=== PATIENT | male | born 1950 | race Caucasian/White ===

== ENCOUNTER → 2017-07-06 | Outpatient (CLI) | payer OTHER | LOC: BMCIMAGING 08:19 | PROVIDERS: ATTEND Family Medicine | DX: K76.0 Fatty (change of) liver, not elsewhere classified (principal) ==

== ENCOUNTER 2017-11-10 12:58 | Inpatient (IN) | payer OTHER, MEDICARE ==
[2017-11-10] MEDS ORDERED: ONDANSETRON 4 MG/2 ML VIAL IVP PRN (15:46)
[2017-11-10] MEDS ORDERED: PROMETHAZINE HCL 25 MG/ML INJ IVP PRN (15:46)
[2017-11-10] MEDS ORDERED: ACETAMINOPHEN 325 MG TAB PO PRN (15:51)
[2017-11-10 17:27] LABS: PLATELET COUNT 329 10^3/uL (150-400)
[2017-11-10] MEDS: NS 1,000 ML IV SCH (17:43)
[2017-11-10] MEDS: cefTRIAXone 1 GM in STERILE WATER INJ 10 ML IV SCH (17:45)
[2017-11-10 17:51] LABS: INR 1.07 (0.83-1.16); PROTIME(PATIENT) 14.1 SEC (12.0-15.0)
--- NOTE | 2017-11-10 17:53 | GHP ---
[f rep st] HISTORY AND PHYSICAL DATE OF ADMISSION: 11/10/2017 CHIEF COMPLAINT: Right upper quadrant pain. HISTORY: The patient is a 67-year-old male, who has had abdominal pain for 1 week. He describes yun sea, dry heaving, and abdominal cramping. This is his third similar episode in the last 5 months. A t his first episode last fall, he had an ultrasound and a CT scan that showed he was told duodenal in flammation, and nothing further was done. He had another episode around the holidays which passed sp ontaneously, and now he is in this current episode. He describes a right upper quadrant pain that is now more generalized in his abdomen. It does not radiate to the back. It comes and goes and is wor se with eating. He has had a 15-pound unintentional weight loss. He has had low-grade fever up to 10 19 last Thursday with shaking chills. Pain is 3/10 severity, just mild and aching, not severe. He als o complains of joint aches, malaise, and weakness. He noticed jaundice 4 days ago. There has been n o change in his bowels. He had an outpatient ultrasound that showed gallbladder sludge with bile ming t dilatation. He is now being admitted directly. PAST MEDICAL HISTORY: Hypothyroidism. PAST SURGICAL HISTORY: Lipoma removal. MEDICATIONS: Please see computerized record for full detailed list. ALLERGIES: No known drug allergies. SOCIAL HISTORY: He has not smoked for 20 years. Alcohol: He quit prior to . He lives wit h his . He works in environmental science. REVIEW OF SYSTEMS: Complete review of systems obtained. Review of systems negative regarding consti tutional, HEENT, GI, pulmonary, vascular, , hematology, skin, musculoskeletal, endocrine, psych exc ept for positives and negatives as noted in HPI. FAMILY HISTORY: Reviewed, noncontributory to presenting complaint. PHYSICAL EXAMINATION: GENERAL: Well-developed, well-nourished male, in no acute distress. VITAL SI GNS: Temperature is 37.2, pulse 84, blood pressure 120/85, satting 94% on room air. EYES: Normal c onjunctivae. Pupils round, reactive to light. ENT: Normal ears and nose. Hearing intact. Normal teeth. Oropharynx moist. NECK: Trachea midline. No thyromegaly. CHEST: Normal respiratory effor t. LUNGS: Clear to auscultation bilaterally. CARDIOVASCULAR: Regular rhythm. No murmur. No lowe r extremity edema. ABDOMEN: Soft, nontender. No hepatosplenomegaly. SKIN: Warm, dry, intact. No rash. MUSCULOSKELETAL: No cyanosis or clubbing. Strength 5/5 upper and lower extremities. NEURO: Cranial nerves intact. Normal sensation to light touch. PSYCH: Alert and oriented x3. Normal af fect. Normal judgment. Normal memory. LABORATORY DATA: White count 11.29, hematocrit 47.9, platelets 264. Sodium 140, potassium 4.4, chlo ride 100, bicarb 24, BUN 6, creatinine 0.8, glucose 134, total bili 10.3, conjugated bili is 8, AST 9 6, ALT 256, alk phos 244, lipase 160. Viral hepatitis panel is negative. Abdominal ultrasound shows gallbladder sludge and common bile duct dilatation at 11 mm. ASSESSMENT/PLAN: Bile duct obstruction with jaundice and elevated bilirubin. Differential diagnosis is gallstone versus tumor. I have spoken with Dr. Min Saba. He recommends an MRCP tonight and [employer] tomorrow after we have ruled out tumor. I am concerned about his reported fevers, although he is very nontoxic-appearing at this time and currently afebrile. He may have a very early mild cholangi tis so we will treat empirically with ceftriaxone and Flagyl. If he becomes more toxic and septic-ap pearing this evening, could consult GI for a more urgent ERCP. We will make him n.p.o. after midnigh t with anticipated procedure tomorrow. Endoscopic ultrasound will be added if tumor found on MRCP. COR STATUS: Full. ADMISSION STATUS: 1. We will start with observation. Reevaluate tomorrow regarding ongoing need for hospitalization. 2. DVT prophylaxis. We will hold given anticipated procedure. /[id number]/MODL
[2017-11-11] MEDS: LEVOTHYROXINE 100 MCG TAB PO SCH (05:18)
[2017-11-11 05:19] LABS: PLATELET COUNT 327 10^3/uL (150-400)
--- NOTE | 2017-11-11 08:50 | CPEKG ---
Heart Rate: 78 RR Interval: 769 P-R Interval: 152 QRSD Interval: 78 QT Interval: 376 QTC Interval: 429 P [place]: 43 QRS [place]: 44 T Wave [place]: -10 EKG Severity - BORDERLINE ECG - EKG Impression: SINUS RHYTHM EKG Impression: PROBABLE LEFT ATRIAL ABNORMALITY EKG Impression: BORDERLINE T ABNORMALITIES, INFERIOR LEADS Electronically Signed By: Meenakshi Ramos 11-Nov-2017 14:26:58
--- NOTE | 2017-11-11 08:52 | HOSPPROG ---
Hospitalist Progress Note Assessment/Plan: DIAGNOSES: -obstructing choledocholithiasis, with Recent onset abdominal pain/jaundice, with biliary dilation noted -Gal Bladder perforation seen on MRCP per radiologist but on my review of the stay with Dr. Severino it appears there likely is not an actual perforation in Dr. Severino's opinion I reviewed the case in detail and the care plans with Dr. Severino this morning I reviewed the clinical findings, radiology findings, laboratory data and past history in detail with the patient this morning. He had many questions about the diagnosis, how long he has had stones, the findings on the imaging studies, the reason for the current recommended plans, the reason for general anesthesia with cholecystectomy, and several other important questions. All these were answered in detail. PLANS: -continue supportive care with fluids, symptomatic medicines -continue IV hydration -NPO pending procedures -ERCP for stone extraction and possible stent placement later today, currently scheduled at 1:30 p.m. -continue supportive care and antibiotics, allow for recovery of biliary function and hepatic function before proceeding to his cholecystectomy likely in 2-3 days SUBJECTIVE: The patient at this time does not have pain or nausea and is not having chills He is not short of breath No other new symptoms OBJECTIVE Vitals reviewed: Highest temperature so far 37.3 vital signs otherwise stable Exam: alert oriented skin warm dry color ok resps not labored lungs clear BSs heart regular abd soft nondistended nontender, bowel sounds present limbs warm, no edema iv site ok Laboratory data: Bilirubin remains unchanged at 11, with alk-phos higher than transaminases Neutrophil count remains mildly elevated otherwise stable CBC Stable renal function and electrolytes I reviewed the MRI images, and he clearly has bile duct obstruction from a stone. There is some fluid density surrounding the gallbladder which could potentially be edema or fluid, but I am not personally able to differentiate these on MR Objective: Vital Signs Temp Pulse Resp BP Pulse Ox 36.6 C 76 16 113/73 91 L 11/11/17 08:00 11/11/17 08:00 11/11/17 08:00 11/11/17 08:00 11/11/17 08:00 Laboratory Results 11/11/17 04:37 11/11/17 04:37 PT 14.1 SEC (12.0-15.0) 11/10/17 17:19 INR 1.07 (0.83-1.16) 11/10/17 17:19 - Time Spent With Patient Time Spent with Patient: greater than 35 minutes Time Spent with Patient: Greater than 35 minutes spent on this patients care, greater than 50% of time spent counseling, educating, and coordinating care regarding the above mentioned plan. ICD10 Worksheet Patient Problems: Problems Problem Status Onset Dilated bile duct Acute
[2017-11-11] MEDS: cefTRIAXone 1 GM in STERILE WATER INJ 10 ML IV SCH (09:37)
[2017-11-11] MEDS: NS 1,000 ML IV SCH (09:37)
--- NOTE | 2017-11-11 11:22 | ASMTCASEMG ---
Living Arrangements What is your living Answers: With Spouse arrangement? Who do you live with? Type Of Residence What kind of residence do Answers: House you live in? Discharge Plan Comments Coordination Status Comments Notes: Pt is a 67 y/o man admitted for abdominal pain and jaudice. Pt will most likely d/c independent without any needs. No therapies ordered at this time. CM available for changes. Plan: Independent Date Signed: 11/11/2017 11:21 AM Electronically Signed By:LILLIAN Small
[2017-11-11] MEDS ORDERED: GLUCAGON HCL 1 MG VIAL ONE (12:11)
[2017-11-11] MEDS ORDERED: IOTHALAMATE MEG (CONRAY) 50 ML VIAL IV ONE (12:12)
[2017-11-11] MEDS ORDERED: LR 1,000 ML IV ONE (12:44)
[2017-11-11] MEDS ORDERED: ALBUTEROL 3 ML DEYVIAL IH PRN (12:58)
[2017-11-11] MEDS ORDERED: fentaNYL 100 MCG/2 ML INJ IVP PRN (12:58)
[2017-11-11] MEDS ORDERED: NALOXONE HCL 0.4 MG/ML INJ IVP PRN (12:58)
[2017-11-11] MEDS ORDERED: ONDANSETRON 4 MG/2 ML VIAL IVP PRN (12:58)
[2017-11-11] MEDS ORDERED: ACETAMINOPHEN 500 MG TAB PO PRN (12:58)
[2017-11-11] MEDS ORDERED: HYDROmorphONE/DILAUDID 1 MG/ML INJ IVP PRN (12:58)
--- NOTE | 2017-11-11 13:00 | PDANEPAE ---
ANE History of Present Illness ERCP ANE Past Medical History - Pulmonary History Hx Oxygen in Use at Home: No Hx Sleep Apnea: No Sleep Apnea Screening Result - Last Documented: Positive - Endocrine History Hx Diabetes: No ANE Review of Systems Review of Systems: ANE Patient History - Allergies Allergies/Adverse Reactions: No Known Allergies Allergy (Unverified 11/10/17 15:21) - Home Medications Home Medications: Levothyroxine [Synthroid 100 mcg (*)] 100 mcg PO DAILY06 11/10/17 [Last Taken ] - NPO status NPO Since - Liquids (Date): 11/11/17 NPO Since - Liquids (Time): 00:00 NPO Since - Solids (Date): 11/11/17 NPO Since - Solids (Time): 00:00 - Smoking Hx Smoking Status: Former smoker ANE Labs/Vital Signs - Labs Result Diagrams: 11/11/17 04:37 11/11/17 04:37 - Vital Signs Blood Pressure: 113/73 Heart Rate: 76 Respiratory Rate: 16 O2 Sat (%): 91 Height: 170.18 cm Weight: 74.843 kg ANE Physical Exam - Airway Neck exam: FROM Mallampati Score: Class 2 Mouth exam: normal dental/mouth exam - Pulmonary Pulmonary: clear to auscultation - Cardiovascular Cardiovascular: regular rate and rhythym - ASA Status ASA Status: II ANE Anesthesia Plan Anesthesia Plan: general endotracheal anesthesia
[2017-11-11] MEDS ORDERED: fentaNYL 100 MCG/2 ML INJ ONE (13:11)
[2017-11-11] MEDS ORDERED: ROCURONIUM 50 MG/5 ML VIAL ONE (13:11)
[2017-11-11] MEDS ORDERED: PROPOFOL 200 MG/20 ML VIAL ONE (13:11)
--- NOTE | 2017-11-11 13:22 | GCON ---
[f rep st] CONSULTATION REFERRING PHYSICIAN: Dr. Jasvir Grijalva REASON FOR CONSULTATION: Abdominal pain and jaundice. HISTORY OF PRESENT ILLNESS: Briefly, the patient is a pleasant, healthy, 67- year-old male who has had several weeks of intermittent right upper quadrant pain associated with nausea and low-grade fever. He was seen in his primary care office yesterday and noted to be visibly jaundiced. His outpatient workup has included both ultrasound and CT scan. He was noted to have a dilated gallbladder. In the setting of his unintentional weight loss, abdominal pain, and worsened jaundice, he was asked to present to the hospital. His inpatient evaluation, included an MRCP, which has revealed a large common bile duct stone , as well as evidence of cholecystitis. He reports prior to the last several weeks, he has had no eating related pain or right upper quadrant pain. He denies any personal or family history of biliary tract disease, pancreatic disease, or peptic disease. ALLERGIES: None. FAMILY HISTORY: no Gall Bladder disease OUTPATIENT MEDICINES: Thyroid replacement. PAST MEDICAL HISTORY: Hypothyroidism. PAST SURGICAL HISTORY: Lipoma removal. SOCIAL HISTORY: He does not drink, smoke, or use drugs currently. He has a prior history of tobacco use, but has been abstinent for 20 years. He has a prior history of alcohol use, but reports he has given that up as recently as Ethel. He lives with his . He works in environmental science. REVIEW OF SYSTEMS: A complete 10-point review was undertaken with the patient and is negative, except for those pertinent positives and negatives detailed in the history of present illness. PHYSICAL EXAMINATION: GENERAL: This is a well-developed male in no apparent distress. HEENT: His pupils are equal, round, reactive to light and accommodation. His sclerae are icteric. His oropharynx is clear. NECK: Supple without lymphadenopathy. HEART: Regular without murmur. LUNGS: Normal respiratory effort with excellent breath sounds. ABDOMEN: Soft, with mild tenderness in the right upper quadrant. SKIN: Warm and dry, but shows evidence of jaundice. MUSCULOSKELETAL: No cyanosis or clubbing. NEUROLOGIC: Grossly nonfocal. PSYCHIATRIC: Normal mood and affect. LABORATORY/IMAGING: On admission, his total bilirubin was 10.8, unconjugated was 1.9, conjugated was 8.9, AST of 84, ALT of 219, alkaline phosphatase of 256 , lipase of 133. INR of 1.07. White count of 8.96, hemoglobin of 15.9, hematocrit of 45.7, platelet count of 327. MRCP of the abdomen revealed gallbladder with pericholecystic fluid collection concerning for a biloma, abscess, or perforation. A probable 1 cm stone in the distal common bile duct with moderate biliary ductal dilation. There was both intra, as well as extrahepatic ductal dilation. Gallbladder sludge and layering throughout the cystic duct was also noted concerning for inspissated bile versus hemorrhage. Pancreatic appeared normal. IMPRESSION/RECOMMENDATIONS: The patient has had recurrent right upper quadrant abdominal pain, now associated with jaundice. His imaging is consistent with a biliary ductal obstruction from choledocholithiasis. At this point, I recommend he undergo ERCP. We will be attempting to remove his large common bile duct stone. He will likely benefit from laparoscopic cholecystectomy ultimately as well. /[id number]/MODL MTDD
--- NOTE | 2017-11-11 14:25 | GIREPORT ---
[facility] - Endoscopy Department Patient Name: Solo Jacques Procedure Date: 11/11/2017 1:30 PM Patient Type: Inpatient Attending MD/ ER Physician: Min Saba MD Procedure: ERCP Indications: Abdominal pain of suspected biliary origin, Abnormal MRCP, Suspected bi le duct stone(s), Suspected ascending cholangitis, Jaundice, Abnormal live r function test, Elevated bilirubin Providers: Min Saba MD Medicines: Sedation Administered by an Anesthesia Professional Complications: No immediate complications. Description of Procedure: After obtaining informed consent, the scope was passed under direct vis ion. Throughout the procedure, the patient's blood pressure, pulse, and oxyg en saturations were monitored continuously. The was introduced through the mouth, and advanced to the duodenum and used to inject contrast into th e bile duct. The ERCP was accomplished without difficulty. The patient tolerated the procedure well. Findings: The solvent recoverer film was normal. The esophagus was successfully intubated und er direct vision. The scope was advanced to a normal major papilla in the descending duodenum without detailed examination of the pharynx, larynx and associated structures, and upper GI tract. The upper GI tract was gross ly normal. The bile duct was deeply cannulated with the short-nosed tracti on sphincterotome. Contrast was injected. I personally interpreted the juan e duct images. There was brisk flow of contrast through the ducts. Image quality was excellent. Contrast extended to the main bile duct. Contras t extended to the bifurcation. Contrast extended to the hepatic ducts. Th e entire biliary tree was diffusely dilated. The largest diameter was 15 mm. The lower third of the main bile duct contained multiple stones, the la rgest of which was 12 mm in diameter. A straight Roadrunner wire was passed i nto the biliary tree. A 12 mm biliary sphincterotomy was made with a nathalieide d traction (standard) sphincterotome using ERBE electrocautery. There was no post-sphincterotomy bleeding. The biliary tree was swept with a 15 mm balloon starting at the bifurcation. Pus was swept from the duct. Sludg e was swept from the duct. Debris was swept from the duct. One 10 Fr by 7 cm plastic stent with a single external flap and a single internal flap wa s placed 6.5 cm into the common bile duct. Bile, pus and sludge flowed th rough the stent. The stent was in good position. Estimated Blood Loss: Estimated blood loss: none. Post Op Diagnosis: - The entire biliary tree was dilated. - Choledocholithiasis was found. Partial removal was accomplished with biliary sphincterotomy; a stent was inserted. - A biliary sphincterotomy was performed. - The biliary tree was swept and pus, sludge and debris were found. - One plastic stent was placed into the common bile duct. Recommendation: - [facility]. - Refer to a surgeon. - Repeat ERCP in 6 weeks for retreatment. May benefit from cholangiosco py and lithotripsy. - The findings and recommendations were discussed with the surgeon. - The findings and recommendations were discussed with the patient's lynn berry. Attending Participation: I personally performed the entire procedure. Min Saba MD Min Saba MD 11/11/2017 2:25:18 PM This report has been signed electronicallyMin Saba MD Number of Addenda: 0 Note Initiated On: 11/11/2017 1:30 PM [email or web address]
--- NOTE | 2017-11-11 14:29 | POSTANESTH ---
Post Anesthetic Evaluation Cardiovascular Status: Normal, Stable Respiratory Status: Normal, Stable Level of Consciousness/Mental Status: Can Participate in Eval, Alert and Oriented Pain Control: Adequate, Prn Tx Ordered Nausea/Vomiting Control: Adequate, Prn Tx Ordered Complications Possibly Related to Anesthesia: None Noted
--- NOTE | 2017-11-11 15:43 | GCON ---
[f rep st] CONSULTATION DATE OF CONSULTATION: 11/10/2017 REFERRING PHYSICIAN: Disha Mckeon MD REASON FOR CONSULTATION: Obstructive jaundice with abnormal gallbladder. HISTORY OF PRESENT ILLNESS: The patient is a 67-year-old white gentleman who presented with a biliru bin of 10.8 with 8.9 mg as conjugated. An MRCP did show a distal common bile duct stone. Lipase is normal. The gallbladder has an irregularity along its medial wall, which may be a partial duplicatio n or variation of a Phrygian cap. Speculation was made that this might be in fact a perforation, but it appears to be too smooth on the external side and he does not appear septic at this point, so I t hink that is in fact not the case. I spent approximately 45 minutes going over biliary physiology an d answering questions for the patient. He will undergo an ERCP on Thursday, the . After that h as been completed, the decision will be made as to when to intervene for a cholecystectomy. Note is made he does have sludge but no other obvious stones in the gallbladder. His lipase is normal now. His transaminases are minimally elevated. We will see how he does physiol ogically and then proceed with potential elective cholecystectomy. At this point, he is unclear whet her he wishes to proceed with a cholecystectomy and is becoming more comfortable with that possible dagoberto hunt. /[id number]/MODL
--- NOTE | 2017-11-11 17:38 | SOAPPROG ---
[facility] Progress Note Assessment/Plan: Assessment: ERCP partially successful in removing stones. Stent placed. Follow up ERCP planned in future. Plan: Will get follow up labs in AM to help decide when to proceed with Cholecystectomy Subjective: I have some nausea now. Objective: Vital Signs Temp Pulse Resp BP Pulse Ox 37.1 C 79 18 115/71 91 L 11/11/17 17:10 11/11/17 17:10 11/11/17 17:10 11/11/17 17:10 11/11/17 17:10 Laboratory Results 11/11/17 04:37 11/11/17 04:37 11/10/17 11/11/17 11/12/17 05:59 05:59 05:59 Intake Total 650 Output Total 0 Balance 650 PT 14.1 SEC (12.0-15.0) 11/10/17 17:19 INR 1.07 (0.83-1.16) 11/10/17 17:19 ICD10 Worksheet Patient Problems: Problems Problem Status Onset Dilated bile duct Acute
[2017-11-12 05:19] LABS: PLATELET COUNT 344 10^3/uL (150-400)
[2017-11-12] MEDS: LEVOTHYROXINE 100 MCG TAB PO SCH (05:40)
[2017-11-12] MEDS: cefTRIAXone 1 GM in STERILE WATER INJ 10 ML IV SCH (08:56)
--- NOTE | 2017-11-12 09:33 | SOAPPROG ---
SOAP Progress Note Assessment/Plan: Assessment: 1. Choledocholithiasis/cholecystitis - s/p ERCP with stent placement and sphincterotomy - purulence and stone in CBD at ERC - large CBD stone remains - LFTs and pain improved p ERC Plan: 1. Repeat ERCP with cholangioscopy and lithotripsy in 6-8 weeks 2. Lap sarah prior to dc 3. Continue abx meanwhile 4. discussed with patient, family, and Dr. Severino this AM - will sign off, call with questions 11/12/17 09:02 Subjective: CC: f/u abn LFTs S: feeling better tolerated clears today no fever overnight no bloody BMs no vomiting improved RUQ pain Objective: Vital Signs Temp Pulse Resp BP Pulse Ox 36.8 C 82 18 118/86 H 93 11/12/17 07:32 11/12/17 07:32 11/12/17 07:32 11/12/17 07:32 11/12/17 07:32 Laboratory Results 11/12/17 04:23 11/12/17 04:23 11/11/17 11/12/17 11/13/17 05:59 05:59 05:59 Intake Total 2648 Output Total 0 Balance 2648 PT 14.1 SEC (12.0-15.0) 11/10/17 17:19 INR 1.07 (0.83-1.16) 11/10/17 17:19 Physical Exam - Physical Exam General Appearance: alert, no apparent distress EENT: PERRL/EOMI, scleral icterus (R), scleral icterus (L) Neck: supple Respiratory: lungs clear, normal breath sounds Cardiac/Chest: normal peripheral pulses, regular rate, rhythm, No edema Abdomen: normal bowel sounds, non-tender, soft Skin: jaundice ICD10 Worksheet Patient Problems: Problems Problem Status Onset Dilated bile duct Acute
--- NOTE | 2017-11-12 10:40 | PDMN ---
Medical Necessity Medical necessity: Change to IP, as of 11/11/17, per MD; los >2 mn following unsuccessful attempt at stone removal by ERCP; admit for IV abx, IVFs, IV antiemetics, stabilization & surgical intervention; per progress note & order
--- NOTE | 2017-11-12 11:35 | SOAPPROG ---
[facility] Progress Note Assessment/Plan: 11/11/2017 Assessment: ERCP partially successful in removing stones. Stent placed. Follow up ERCP planned in future. Plan: Will get follow up labs in AM to help decide when to proceed with Cholecystectomy 11/12/17 11:32 PAD#3 Assessment: Doing well. Bilirubin down, lipase up (as expected) and wbc stable. Plan: Laparoscopic ( possibly open ) cholecystectomy with cholangiogram tomorrow if labs adequate. Subjective: 11/12/2017 My ow back hurts and I think that its the bed! Objective: Vital Signs Temp Pulse Resp BP Pulse Ox 36.8 C 82 18 118/86 H 93 11/12/17 07:32 11/12/17 07:32 11/12/17 07:32 11/12/17 07:32 11/12/17 07:32 Laboratory Results 11/12/17 04:23 11/12/17 04:23 11/11/17 11/12/17 11/13/17 05:59 05:59 05:59 Intake Total 2648 Output Total 0 Balance 2648 PT 14.1 SEC (12.0-15.0) 11/10/17 17:19 INR 1.07 (0.83-1.16) 11/10/17 17:19 - Time Spent With Patient Time Spent With Patient: 35 Physical Exam - Physical Exam General Appearance: WD/WN, alert, mild distress Neck: non-tender, full range of motion Respiratory: chest non-tender, lungs clear, normal breath sounds Cardiac/Chest: regular rate, rhythm Abdomen: normal bowel sounds, non-tender, soft Male Genitalia: deferred Rectal: deferred Back: Normal inspection Skin: jaundice (but improved) Extremities: normal range of motion, non-tender Neuro/Psych: alert, normal mood/affect ICD10 Worksheet Patient Problems: Problems Problem Status Onset Dilated bile duct Acute
--- NOTE | 2017-11-12 12:46 | HOSPPROG ---
Hospitalist Progress Note Assessment/Plan: DIAGNOSES: -obstructing choledocholithiasis with cholangitis, with recent onset abdominal pain/jaundice, with biliary dilation noted on outpatient ultrasound -MRCP showed obstructing stone and raise concern about possible gallbladder leak -ERCP 11/11 with unsuccessful attempt at stone retrieval, successful placement of biliary stent which resulted in drainage of purulent fluid from behind the stone -suspected cholecystitis and question of possible gallbladder leak -mild post ERCP pancreatitis I reviewed the case in detail and the care plans with Dr. Maycol Saba this morning, and I have discussed the patient's status and progress and care recommendations with him and his at the bedside today. Given the question of bile leak from the bladder, and cholangitis, is felt best if we perform his cholecystectomy during this hospital admission. However with mild pancreatitis present it is reasonable to continue antibiotics, keep her restricted diet, recheck his lipase tomorrow, and perform his surgery either tomorrow or the next day. The stent will be left in place with plans to come back in approximately 6 weeks to try a in PLANS: -continue supportive care with fluids, symptomatic medicines -continue IV hydration -NPO pending procedures -ERCP for stone extraction and possible stent placement later today, currently scheduled at 1:30 p.m. -continue supportive care and antibiotics, allow for recovery of biliary function and hepatic function before proceeding to his cholecystectomy likely in 2-3 days -restricted diet for pancreatitis, recheck lipase in the morning -cholecystectomy is recommended either for tomorrow or 11/14 - plan ERCP with lithotripsy, stone extraction and stent removal in approximately 6 weeks SUBJECTIVE: He has less pain, no nausea, and feels less general malaise than previous He has no appetite and does not really feel like eating at this time, but no nausea No chills or sweats OBJECTIVE Vitals reviewed: No fevers so far today, vitals stable Exam: alert oriented skin warm dry color now with less jaundice resps not labored lungs clear BSs heart regular abd soft nondistended nontender, bowel sounds present limbs warm, no edema iv site ok Laboratory data: Bilirubin lower today at 6, with stable transaminases and alk-phos, Lipase up to 340 CBC stable Stable renal function and electrolytes Objective: Vital Signs Temp Pulse Resp BP Pulse Ox 36.8 C 82 18 118/86 H 93 11/12/17 07:32 11/12/17 07:32 11/12/17 07:32 11/12/17 07:32 11/12/17 07:32 Laboratory Results 11/12/17 04:23 11/12/17 04:23 11/11/17 11/12/17 11/13/17 06:59 06:59 06:59 Intake Total 2648 Output Total 0 Balance 2648 PT 14.1 SEC (12.0-15.0) 11/10/17 17:19 INR 1.07 (0.83-1.16) 11/10/17 17:19 - Time Spent With Patient Time Spent with Patient: greater than 35 minutes Time Spent with Patient: Greater than 35 minutes spent on this patients care, greater than 50% of time spent counseling, educating, and coordinating care regarding the above mentioned plan. ICD10 Worksheet Patient Problems: Problems Problem Status Onset Dilated bile duct Acute
[2017-11-13 05:22] LABS: PLATELET COUNT 359 10^3/uL (150-400)
[2017-11-13] MEDS: LEVOTHYROXINE 100 MCG TAB PO SCH (05:30)
--- NOTE | 2017-11-13 07:45 | SOAPPROG ---
[facility] Progress Note Assessment/Plan: 11/11/2017 Assessment: ERCP partially successful in removing stones. Stent placed. Follow up ERCP planned in future. Plan: Will get follow up labs in AM to help decide when to proceed with Cholecystectomy 11/12/17 11:32 PAD#3 Assessment: Doing well. Bilirubin down, lipase up (as expected) and wbc stable. Plan: Laparoscopic ( possibly open ) cholecystectomy with cholangiogram tomorrow if labs adequate. 11/13/17 07:42 PAD#4 Assessment: Bilirubin, lipase and LFTs returning towards normal Plan: Plan laparoscopic cholecystectomy with possible cholangiogram today Subjective: no complaints Objective: Vital Signs Temp Pulse Resp BP Pulse Ox 36.7 C 74 16 118/80 94 11/13/17 07:32 11/13/17 07:32 11/13/17 07:32 11/13/17 07:32 11/13/17 07:32 Laboratory Results 11/13/17 04:22 11/13/17 04:22 11/12/17 11/13/17 11/14/17 05:59 05:59 05:59 Intake Total 2648 210 Output Total 0 Balance 2648 210 PT 14.1 SEC (12.0-15.0) 11/10/17 17:19 INR 1.07 (0.83-1.16) 11/10/17 17:19 - Time Spent With Patient Time Spent With Patient: 15 Physical Exam - Physical Exam General Appearance: WD/WN, alert, no apparent distress Respiratory: chest non-tender, lungs clear, normal breath sounds Cardiac/Chest: regular rate, rhythm Abdomen: normal bowel sounds, non-tender, soft Male Genitalia: deferred Rectal: deferred Back: Normal inspection Skin: jaundice (but jaundice resolving) Extremities: normal range of motion, non-tender, normal inspection Neuro/Psych: no motor/sensory deficits, alert, normal mood/affect, oriented x 3 ICD10 Worksheet Patient Problems: Problems Problem Status Onset Dilated bile duct Acute
[2017-11-13] MEDS: cefTRIAXone 1 GM in STERILE WATER INJ 10 ML IV SCH (10:15)
[2017-11-13] MEDS ORDERED: IOTHALAMATE MEG (CONRAY) 50 ML VIAL IV ONE (11:04)
--- NOTE | 2017-11-13 11:31 | HOSPPROG ---
Hospitalist Progress Note Assessment/Plan: Choledocholithiasis / cholecystitis - s/p ERCP with partial removal of stone, stent placement and sphincterotomy - purulence noted in CBD. LFT's trending down. -lap sarah today per surg -needs repeat ERCP 6-8 weeks with GI for stent removal Cholangitis 2/2 above - BCx's NGTD. Intra-operative Cx's pending -cont Ceftriaxone / Flagyl DVT PPLX - Pharmacologic agents deferred today given surgery. SCD's ordered. Full code Dispo - cont inpt Subjective: Pt feels fine. No longer having RUQ pain. No N/V. No fevers. NPO this am pending surgery. Objective: Vital Signs Temp Pulse Resp BP Pulse Ox 37.1 C 75 12 119/84 H 93 11/13/17 11:26 11/13/17 11:26 11/13/17 11:26 11/13/17 11:26 11/13/17 11:26 Laboratory Results 11/13/17 04:22 11/13/17 04:22 11/12/17 11/13/17 11/14/17 05:59 05:59 05:59 Intake Total 2648 210 Output Total 0 Balance 2648 210 PT 14.1 SEC (12.0-15.0) 11/10/17 17:19 INR 1.07 (0.83-1.16) 11/10/17 17:19 - Physical Exam Constitutional: no apparent distress Eyes: PERRL Ears, Nose, Mouth, Throat: moist mucous membranes Cardiovascular: regular rate and rhythym Respiratory: no respiratory distress, clear to auscultation Gastrointestinal: normoactive bowel sounds, soft, non-tender abdomen Skin: warm Musculoskeletal: full muscle strength Neurologic: AAOx3 Psychiatric: interacting appropriately ICD10 Worksheet Patient Problems: Problems Problem Status Onset Dilated bile duct Acute
[2017-11-13] MEDS ORDERED: MIDAZOLAM 2 MG/2 ML VIAL IVP ONE (11:54)
--- NOTE | 2017-11-13 11:54 | PDANEPAE ---
ANE History of Present Illness here for lap sarah ANE Past Medical History - Cardiovascular History Hx Hypertension: No Hx Arrhythmias: No Hx Chest Pain: No Hx Coronary Artery / Peripheral Vascular Disease: No Hx CHF / Valvular Disease: No Hx Palpitations: No - Pulmonary History Hx COPD: No Hx Asthma/Reactive Airway Disease: No Hx Recent Upper Respiratory Infection: No Hx Oxygen in Use at Home: No Hx Sleep Apnea: No Sleep Apnea Screening Result - Last Documented: Positive - Endocrine History Hx Diabetes: No Hypothyroid: No Hyperthyroid: No - Renal History Hx Renal Disorders: No - Liver History Hx Hepatic Disorders: No - Neurological & Psychiatric Hx Hx Neurological and Psychiatric Disorders: No ANE Review of Systems Review of systems is: negative Review of Systems: - Exercise capacity Exercise capacity: <4 METS ANE Patient History - Allergies Allergies/Adverse Reactions: No Known Allergies Allergy (Unverified 11/10/17 15:21) - Home Medications Home medications: home medication list seen and reviewed Home Medications: Levothyroxine [Synthroid 100 mcg (*)] 100 mcg PO DAILY06 11/10/17 [Last Taken ] - NPO status NPO Status: no food or drink >8 hours NPO Since - Liquids (Date): 11/12/17 NPO Since - Liquids (Time): 22:00 NPO Since - Solids (Date): 11/12/17 NPO Since - Solids (Time): 22:00 - Anes Hx Anes Hx: no prior problems - Smoking Hx Smoking Status: Former smoker ANE Labs/Vital Signs - Labs Result Diagrams: 11/13/17 04:22 11/13/17 04:22 - Vital Signs Vital Signs: reviewed preoperatively; see RN documention for details Blood Pressure: 119/84 Heart Rate: 75 Respiratory Rate: 12 O2 Sat (%): 94 Height: 170.18 cm Weight: 74.843 kg ANE Physical Exam - Airway Neck exam: FROM Mallampati Score: Class 1 - Pulmonary Pulmonary: no respiratory distress - Cardiovascular Cardiovascular: regular rate and rhythym - ASA Status ASA Status: II ANE Anesthesia Plan Anesthesia Plan: general endotracheal anesthesia
[2017-11-13] MEDS ORDERED: ONDANSETRON 4 MG/2 ML VIAL IVP PRN (11:59)
[2017-11-13] MEDS ORDERED: DEXAMETHASONE 4 MG/ML VIAL IVP PRN (11:59)
[2017-11-13] MEDS ORDERED: fentaNYL 100 MCG/2 ML INJ IVP PRN (11:59)
[2017-11-13] MEDS ORDERED: ALBUTEROL 3 ML DEYVIAL IH PRN (11:59)
[2017-11-13] MEDS ORDERED: HYDROmorphONE/DILAUDID 1 MG/ML INJ IVP PRN (11:59)
[2017-11-13] MEDS ORDERED: PROMETHAZINE HCL 25 MG/ML INJ IVP PRN (11:59)
[2017-11-13] MEDS ORDERED: NALOXONE HCL 0.4 MG/ML INJ IVP PRN (11:59)
[2017-11-13] MEDS ORDERED: LR 1,000 ML IV ONE (12:00)
[2017-11-13] MEDS ORDERED: fentaNYL 100 MCG/2 ML INJ ONE ×3 (12:12→14:29)
[2017-11-13] MEDS ORDERED: PROPOFOL/EMULSION 500 MG/50 ML BOTTLE IV ONE (12:14)
[2017-11-13] MEDS ORDERED: ceFAZolin 1 GM/5 ML SYR ONE (12:28)
[2017-11-13] MEDS ORDERED: HEPARIN 5,000 UNIT/0.5 ML SYR ONE (12:28)
[2017-11-13] MEDS ORDERED: SUGAMMADEX SODIUM 200 MG/2 ML VIAL IVP ONE ×2 (14:30)
--- NOTE | 2017-11-13 15:19 | POSTOPPROG ---
Post Op Note Date of Operation: 11/13/17 Surgeon: Lux Severino Anesthesia: GET(General Endotracheal) Pre-op Diagnosis: chronic cholecystitis and s/p ERCP for CBD obstruction Post-op Diagnosis: chronic cholecystitis w/ pericholecystic abscess & ERCP for CBD obstruction Indication: chronic cholecystitis and s/p ERCP for CBD obstruction Procedure: laparoscopic cholecystectomy Findings: chronic cholecystitis w/ pericholecystic abscess & ERCP for CBD obstruction Inf/Abcess present in the surg proc area at time of surgery?: Yes Depth: Organ Space EBL: 100-500 (150cc) Total fluids administered: 900 Complications: pericholecystic abscess discovered Drains: [place] (In biliary fossa) Specimen(s): Gallbladder, fluid for culture
[2017-11-13] MEDS: HYDROmorphONE/DILAUDID 1 MG/ML INJ IVP PRN ×2 (18:16→20:26)
[2017-11-13] MEDS: ACETAMINOPHEN 500 MG TAB PO SCH (23:01)
--- NOTE | 2017-11-14 01:23 | GOP ---
[f rep st] OPERATIVE REPORT DATE OF OPERATION: 11/13/2017 SURGEON: Lux Severino MD ANESTHESIA: General endotracheal. PREOPERATIVE DIAGNOSIS: 1. Chronic cholecystitis. 2. Status post endoscopic retrograde-cholangiopancreatogram for common bile duct obstruction with stent placement. POSTOPERATIVE DIAGNOSIS: 1. Chronic cholecystitis with pericholecystic abscess. 2. Status post endoscopic retrograde-cholangiopancreatogram for common bile duct obstruction with stent placement. PROCEDURE PERFORMED: Laparoscopic cholecystectomy. It was not possible to do a cholangiogram. FINDINGS: 1. Chronic cholecystitis with pericholecystic abscess. 2. Status post endoscopic retrograde-cholangiopancreatogram for common bile duct obstruction with stent placement. SPECIMENS: Infection present: Yes; cholecystic infection was identified. Fluid was sent for culture. ESTIMATED BLOOD LOSS: Approximately 150 cc. INDICATIONS: 1. Chronic cholecystitis. 2. Status post endoscopic retrograde-cholangiopancreatogram for common bile duct obstruction with stent placement. DESCRIPTION OF PROCEDURE: The patient was placed on the operating table in supine position. After induction of adequate general endotracheal anesthesia, he was clipped, prepped, and draped. A surgical time-out was carried out and agreed to by all members of the operative team. Because he has an umbilical hernia, that will be used for access to the abdominal space. Curvilinear incision was planned in the inferior umbilical fold. The skin was sharply incised. The skin was elevated and from the subjacent hernia. The hernia was approximately 1 cm in diameter. A pursestring of #0 PDS was placed. The peritoneum was entered. An 11/12 mm Frederick trocar was positioned. Intra-abdominal insufflation was carried out to 15 mmHg at high flow. A 5 mm port was placed in the midline in the upper epigastrium. Two right upper quadrant 5 mm ports were also placed. The gallbladder was tensely distended. It was covered with adherent omentum. Irrigation ( with heparin and Ancef) was used during the course of the procedure. The adherent fat was carefully taken down from the liver and the gallbladder using a Harmonic Scalpel. This was a slow process. When it was possible, 1 grasper was placed on the fundus and 1 on the infundibulum to help elevate. The cystic duct was quite friable and separates just at the gallbladder. An Endoloop was placed around the cystic duct at a point of non-friable tissue. The same was true of the cystic artery, and again an Endoloop was placed at an appropriate level. Dissection was then continued along the gallbladder itself to avoid risk of injury to the common bile duct or the right hepatic artery. At the midportion of the gallbladder on the medial aspect, adherent fat was carefully taken down, and this yielded a drainage of a purulent material. Cultures were obtained. The gallbladder was carefully from its fossa using Harmonic Scalpel. Once the gallbladder had been , it was placed in an Endo Catch bag and delivered via the umbilical port site. Pneumoperitoneum was reestablished. The liver fossa was carefully examined, and a hook cautery 80 watt seconds was used to provide coagulation to the oozing biliary fossa. Once hemostasis was deemed to be adequate, a 10 flat GISELA drain was placed and led out through the lateral right upper quadrant 5 mm port site. This was secured to the skin with a suture of #3-0 silk. Other ports were removed under direct vision. Note was made that copious irrigation had been carried out throughout the case using approximately 4 L of saline with Ancef and heparin. After the ports were removed, the umbilical site was carefully irrigated with heparin and Ancef-containing irrigant. An inverted simple suture #0 PDS was placed [id number] in the umbilical opening. After this was tied, the pursestring was tied. This resulted in excellent closure. The umbilical skin was carefully tacked down to the fascia with a 4-0 Vicryl suture. Inverted simple sutures of 4-0 Vicryl were placed at the remaining incisions for closure. Mastisol and Steri-Strips were placed. Band-Aids were positioned. At the drain site, 4 x 4's were carefully placed, and a Tegaderm was used to cover them. The patient was transferred to recovery in stable and satisfactory condition. TOTAL FLUIDS ADMINISTERED: 900 cc. DRAINS: A GISELA drain has been placed in the biliary fossa. /[id number]/MODL MTDD
[2017-11-14] MEDS: LEVOTHYROXINE 100 MCG TAB PO SCH (05:26)
[2017-11-14] MEDS: ACETAMINOPHEN 500 MG TAB PO SCH ×3 (05:32→22:56)
[2017-11-14 05:56] LABS: PLATELET COUNT 368 10^3/uL (150-400)
--- NOTE | 2017-11-14 08:47 | SOAPPROG ---
[facility] Progress Note Assessment/Plan: 11/11/2017 Assessment: ERCP partially successful in removing stones. Stent placed. Follow up ERCP planned in future. Plan: Will get follow up labs in AM to help decide when to proceed with Cholecystectomy 11/12/17 11:32 PAD#3 Assessment: Doing well. Bilirubin down, lipase up (as expected) and wbc stable. Plan: Laparoscopic ( possibly open ) cholecystectomy with cholangiogram tomorrow if labs adequate. 11/13/17 07:42 PAD#4 Assessment: Bilirubin, lipase and LFTs returning towards normal Plan: Plan laparoscopic cholecystectomy with possible cholangiogram today 11/14/17 08:44 POD#1 Assessment: Feeling well, minimal flatus but no stool, eating, GISELA- 190cc since PACU, Bili down further, LFTs and wbc minimally up but not unexpected. Gram stain (of pericholecystic collection) with 4+ WBC but no organisms seen Doing well Plan: F/u labs in AM and if doing well, home on oral antibiotics 11/14/17 08:48 Subjective: I'm hungry and continue to feel better Objective: Vital Signs Temp Pulse Resp BP Pulse Ox 36.8 C 90 16 113/77 96 11/14/17 08:00 11/14/17 08:00 11/14/17 08:00 11/14/17 08:00 11/14/17 08:00 Microbiology 11/13/17 14:38 Gram Stain - Final Gallbladder - Aspirate Laboratory Results 11/14/17 04:41 11/14/17 04:41 11/13/17 11/14/17 11/15/17 05:59 05:59 05:59 Intake Total 210 1050 Output Total 1115 Balance 210 -65 PT 14.1 SEC (12.0-15.0) 11/10/17 17:19 INR 1.07 (0.83-1.16) 11/10/17 17:19 - Time Spent With Patient Time Spent With Patient: 15 Physical Exam - Physical Exam General Appearance: WD/WN, alert, no apparent distress Respiratory: chest non-tender, lungs clear, normal breath sounds Cardiac/Chest: regular rate, rhythm Abdomen: normal bowel sounds, non-tender, soft, distended Male Genitalia: deferred Rectal: deferred Back: Normal inspection Skin: warm/dry (Much less jaundiced) Extremities: normal range of motion, non-tender, normal inspection Neuro/Psych: no motor/sensory deficits, alert, normal mood/affect, oriented x 3 ICD10 Worksheet Patient Problems: Problems Problem Status Onset Dilated bile duct Acute
[2017-11-14] MEDS: cefTRIAXone 1 GM in STERILE WATER INJ 10 ML IV SCH (09:34)
--- NOTE | 2017-11-14 09:50 | HOSPPROG ---
Hospitalist Progress Note Assessment/Plan: Choledocholithiasis / cholecystitis - s/p ERCP with partial removal of stone, stent placement and sphincterotomy - purulence noted in CBD. LFT's trending down. Lap sarah yesterday, POD #1. Tolerating clears, ambulating. -advance diet as tolerated -needs repeat ERCP 6-8 weeks with GI for stent removal Cholangitis 2/2 above - BCx's NGTD. Intra-operative Cx's pending -cont Ceftriaxone / Flagyl -likely change to augmentin at d/c to complete tx course DVT PPLX - SCD's, he is ambulating frequently Full code Dispo - cont inpt, likely home in am Subjective: Pt feels ok, a little bit of flatus, no BM. Tolerating clears. No fevers. No N/V. Pain controlled. He is ambulating frequently. Objective: Vital Signs Temp Pulse Resp BP Pulse Ox 36.8 C 90 16 113/77 96 11/14/17 08:00 11/14/17 08:00 11/14/17 08:00 11/14/17 08:00 11/14/17 08:00 Microbiology 11/13/17 14:38 Gram Stain - Final Gallbladder - Aspirate Laboratory Results 11/14/17 04:41 11/14/17 04:41 11/13/17 11/14/17 11/15/17 05:59 05:59 05:59 Intake Total 210 1050 Output Total 1115 Balance 210 -65 PT 14.1 SEC (12.0-15.0) 11/10/17 17:19 INR 1.07 (0.83-1.16) 11/10/17 17:19 - Physical Exam Constitutional: no apparent distress Eyes: PERRL Ears, Nose, Mouth, Throat: moist mucous membranes Cardiovascular: regular rate and rhythym, no murmur, rub, or gallop Respiratory: no respiratory distress, clear to auscultation Gastrointestinal: normoactive bowel sounds, other (soft, mildly distended, no r/ r/g, incisions c/d/i) Skin: warm Musculoskeletal: full muscle strength Neurologic: AAOx3 Psychiatric: interacting appropriately ICD10 Worksheet Patient Problems: Problems Problem Status Onset Dilated bile duct Acute
--- NOTE | 2017-11-14 16:01 | ASMTCMCOM ---
CM Note CM Note Notes: Pt is s/p krishna smith. He may d/c tomorrow with no CM needs identified. Date Signed: 11/14/2017 04:01 PM Electronically Signed By:JOE Lu
[2017-11-14 23:13] VITALS: PULSE 75
[2017-11-15 05:35] LABS: PLATELET COUNT 354 10^3/uL (150-400)
[2017-11-15] MEDS: LEVOTHYROXINE 100 MCG TAB PO SCH (05:43)
[2017-11-15] MEDS: ACETAMINOPHEN 500 MG TAB PO SCH (06:09)
[2017-11-15 07:18] VITALS: BP 108/65; RESP 18; TEMP 98.6; O2SAT 92
--- NOTE | 2017-11-15 08:57 | SOAPPROG ---
[facility] Progress Note Assessment/Plan: 11/11/2017 Assessment: ERCP partially successful in removing stones. Stent placed. Follow up ERCP planned in future. Plan: Will get follow up labs in AM to help decide when to proceed with Cholecystectomy 11/12/17 11:32 PAD#3 Assessment: Doing well. Bilirubin down, lipase up (as expected) and wbc stable. Plan: Laparoscopic ( possibly open ) cholecystectomy with cholangiogram tomorrow if labs adequate. 11/13/17 07:42 PAD#4 Assessment: Bilirubin, lipase and LFTs returning towards normal Plan: Plan laparoscopic cholecystectomy with possible cholangiogram today 11/14/17 08:44 POD#1 Assessment: Feeling well, minimal flatus but no stool, eating, GISELA- 190cc since PACU, Bili down further, LFTs and wbc minimally up but not unexpected. Gram stain (of pericholecystic collection) with 4+ WBC but no organisms seen Doing well Plan: F/u labs in AM and if doing well, home on oral antibiotics POD#2 11/15/17 08:53 Assessment: Feels well. VSS Minimal flatus but no bowel movement. WBC dropping, Bilirubin dropping, LFTs returning to normal, GISELA output serous and decreasing E.coli on cultures Plan: Remove GISELA switch to Augmentin x 7 days agree with discharge Subjective: I'm still a little bloated Objective: Vital Signs Temp Pulse Resp BP Pulse Ox 37.0 C 75 18 108/65 92 11/15/17 07:16 11/15/17 07:16 11/15/17 07:16 11/15/17 07:16 11/15/17 07:16 Microbiology 11/13/17 14:38 Gram Stain - Final Gallbladder - Aspirate 11/13/17 14:38 Mycobacterial Smear (BARBARA) - Final Gallbladder - Aspirate Laboratory Results 11/15/17 04:35 11/15/17 04:35 11/14/17 11/15/17 11/16/17 05:59 05:59 05:59 Intake Total 1050 Output Total 1115 30 Balance -65 -30 PT 14.1 SEC (12.0-15.0) 11/10/17 17:19 INR 1.07 (0.83-1.16) 11/10/17 17:19 - Time Spent With Patient Time Spent With Patient: 25 - Pending Discharge Pending Discharge Within 24 Hours: Yes Pending Discharge Date: 11/15/17 Pending Discharge Time: 11:00 Physical Exam - Physical Exam General Appearance: WD/WN, alert, no apparent distress Respiratory: chest non-tender, lungs clear, normal breath sounds Cardiac/Chest: regular rate, rhythm Abdomen: normal bowel sounds, non-tender, soft Male Genitalia: deferred Rectal: deferred Back: Normal inspection Skin: normal color (jaundice resolving) Neuro/Psych: no motor/sensory deficits, alert, normal mood/affect, oriented x 3 ICD10 Worksheet Patient Problems: Problems Problem Status Onset Dilated bile duct Acute
[2017-11-15] MEDS ORDERED: AMOXICILLIN/CLAVULANATE POT 875/125 MG TAB PO SCH (09:00)
[2017-11-15] MEDS ORDERED: IBUPROFEN 200 MG TAB PO PRN (09:02)
[2017-11-15] MEDS ORDERED: HYDROmorphONE/DILAUDID 2 MG TAB PO PRN (09:02)
[2017-11-15] MEDS: cefTRIAXone 1 GM in STERILE WATER INJ 10 ML IV SCH (09:40)
--- NOTE | 2017-11-15 10:54 | GDS ---
[f rep st] DISCHARGE SUMMARY DISCHARGE DIAGNOSES: 1. Choledocholithiasis, status post ERCP with stent placement. 2. Cholecystitis, status post laparoscopic cholecystectomy. 3. Cholangitis, treated with IV ceftriaxone and Flagyl, discharging on oral Augmentin. 4. Elevated liver function tests, secondary to above, trending down. CONSULTANTS: 1. Dr. Lux Severino, General Surgery. 2. Dr. Min Saba, Gastroenterology. IMAGING STUDIES/PROCEDURES: 1. MRCP abdomen, November 10, 2017, showed gallbladder perforation with small pericholecystic fluid c ollection, and a 1 cm stone in the distal common bile duct with moderate biliary dilatation. 2. ERCP, November 11, 2017, performed by Dr. Min Saba. Showed dilation of the entire biliary tree with choledocholithiasis and partial removal of the stone with a biliary sphincterotomy and insertio n of a stent. Pus, sludge, and debris were found in the biliary tree. 3. Laparoscopic cholecystectomy, November 13, 2017, revealed chronic cholecystitis with pericholecyst ic abscess. HISTORY: For details please see the history and physical dated November 10, 2017. In brief, the abiola ent is a 67-year-old male with a history of hypothyroidism, who presented to the emergency department with right upper quadrant pain. He was found to have biliary obstruction [facility] HOSPITAL COURSE: Patient was admitted to med/surg unit. General Surgery and Gastroenterology consul ts were obtained. MRCP was suggestive of obstructive biliary process and he underwent ERCP the morning, there was partial removal of his common bile duct stone, and a stent was placed. He th en underwent laparoscopic cholecystectomy. He was treated with IV ceftriaxone and Flagyl. His LFTs had been continuing to trend down nicely, with a presenting bilirubin of 11, and a discharge bilirubi n of 2.8. In addition, his transaminases are improving, and his alkaline phosphatase has normalized. He has remained afebrile, without evidence of sepsis. His blood cultures are negative. His gallbl adder aspirate fluid from surgery grew E coli, sensitive to ampicillin. His postop recovery has been uneventful. He is tolerating a full diet and passing flatus, and wishes to discharge home. His ludmila in was removed by surgery, who feels he is stable for discharge. DISPOSITION: Patient is discharged home in stable condition. FOLLOWUP: 1. Dr. Min Saba in 4 weeks to plan for repeat ERCP and stent removal. 2. Dr. Gaetano eKating, General Surgery in [address] Cesilia Betts, primary care. DISCHARGE MEDICATIONS: Please see [facility] for completed outpatient medication list. New medication s on discharge include Tylenol 1000 mg p.o. q.8 hours, Dilaudid 2 mg p.o. q.4 hours p.r.n., #20, no r efills, ibuprofen 200 mg p.o. q.4 hours p.r.n., and Augmentin 875 mg p.o. b.i.d., #14, no refills. /[id number]/MODL
--- NOTE | 2017-11-15 17:24 | ASDISCHSUM ---
Discharge Information Plan Status:Home with No Needs Medically Cleared to Leave:11/14/2017 Discharge Date:11/15/2017 11:46 AM CM D/C Disposition:Home, Routine, Self-Care ADT D/C Disposition:Home, Routine, Self-Care Projected Discharge Date:11/15/2017 11:00 AM Transportation at D/C:Family Discharge Delay Reason: Follow-Up Date:11/15/2017 11:00 AM Discharge Slot: Final Diagnosis:Kidney stones Placement Information Patient Contact Information Contact Name:MIGUEL Relationship: Address:[address] [place] [address] City:[place] Alternate Phone: [facility]/Zip Code:[place] [address] Email: Financial Information Financial Class: Primary Plan Desc:MEDICARE INPATIENT Primary Plan Number:[id number] Secondary Plan Desc:[employer]/MDR SUPPLEMENT Secondary Plan Number:[id number] Assessment Information [facility] Initial CM Assessment Living Arrangements What is your living Answers: With Spouse arrangement? Who do you live with? Type Of Residence What kind of residence do Answers: House you live in? Discharge Plan Comments Coordination Status Comments Notes: Pt is a 67 y/o man admitted for abdominal pain and jaudice. Pt will most likely d/c independent without any needs. No therapies ordered at this time. CM available for changes. Plan: Independent Date Signed: 11/11/2017 11:21 AM Electronically Signed By:LILLIAN Small [facility] CM Progress Note CM Note CM Note Notes: Pt is s/p lap sarah. He may d/c tomorrow with no CM needs identified. Date Signed: 11/14/2017 04:01 PM Electronically Signed By:JOE Lu Case Management Discharge Plan Note Case Management Discharge Discharge Order Complete? Answers: Yes Patient to Obtain Answers: via Family Medications Transportation Arranged Answers: Family/Friends Transport will Pick (Date 11/15/2017 11:00 AM & Time) Family Notified Answers: Yes Notes: Family to transport Discharge Comments Notes: Patient has been discharged home. ERCP partially successful, stent placed. F/u ERCP in future. No other needs at this time. Date Signed: 11/15/2017 09:42 AM Electronically Signed By:Thu St LCSW Intervention Information
== END 2017-11-15 11:46 | disposition home or self-care (01) | DRG 419 ==
LOC: F3E 15:10 → OBSVTOIN 11-11 18:17
PROVIDERS: ADMIT Internal Medicine; ATTEND Internal Medicine
PROC: 0F798DZ Dilation of Common Bile Duct with Intraluminal Device, Via Natural or Artificial Opening Endoscopic (ICD-10-PCS; 2017-11-11)
PROC: 0FC98ZZ Extirpation of Matter from Common Bile Duct, Via Natural or Artificial Opening Endoscopic (ICD-10-PCS; 2017-11-11)
PROC: 0FT44ZZ Resection of Gallbladder, Percutaneous Endoscopic Approach (ICD-10-PCS; principal; 2017-11-13 12:15)
DX: K80.45 Calculus of bile duct with chronic cholecystitis with obstruction (principal); B96.20 Unspecified Escherichia coli [E. coli] as the cause of diseases classified elsewhere; E03.9 Hypothyroidism, unspecified
CPT/HCPCS: A9585; C2625; G0378; J0696; J1170; J1610; J2405; J2704; J3010; Q9961

== ENCOUNTER → 2017-11-10 | Outpatient (CLI) | payer OTHER, MEDICARE ==
[~2017-11-10] MED LIST: GADOBUTROL 10 ML VIAL IVP ONE
== END ==
LOC: FIMAGING 08:44
PROVIDERS: ATTEND Internal Medicine
DX: K82.9 Disease of gallbladder, unspecified (principal); K83.8 Other specified diseases of biliary tract; K76.9 Liver disease, unspecified
CPT/HCPCS: 76705; A9585